=== PATIENT | male | born 1975 | race Caucasian/White ===

== ENCOUNTER 2020-02-04 20:56 | Emergency (ER) | payer OTHER ==
[2020-02-04] MEDS ORDERED: IBUPROFEN 600 MG TABLET (FP) PO ONE ×2 (21:09→21:14)
[2020-02-04 21:26] VITALS: BP 156/104; PULSE 103; TEMP 99; BMI 28.0
== END 2020-02-04 21:21 | disposition home or self-care (01) ==
LOC: EDSEX → FER 20:56
DX: S39.012A Strain of muscle, fascia and tendon of lower back, initial encounter (principal); S46.911A Strain of unspecified muscle, fascia and tendon at shoulder and upper arm level, right arm, initial encounter
CPT/HCPCS: 99283-25

== ENCOUNTER 2020-02-16 19:56 | Emergency (ER) | payer OTHER ==
[2020-02-16 20:30] VITALS: BP 148/97; PULSE 115; TEMP 98.9; BMI 28.0
[2020-02-16] MEDS ORDERED: DIPHTH,PERTUSS(ACELL),TET 0.5 ML DISP.SYRIN IM ONE ×2 (20:36→20:37)
[2020-02-16] MEDS ORDERED: IBUPROFEN 600 MG TABLET (FP) PO ONE ×2 (20:45→20:46)
== END 2020-02-16 20:56 | disposition home or self-care (01) ==
LOC: FER 19:56
PROC: 3E0234Z Introduction of Serum, Toxoid and Vaccine into Muscle, Percutaneous Approach (ICD-10-PCS; principal; 2020-02-16)
DX: S46.911A Strain of unspecified muscle, fascia and tendon at shoulder and upper arm level, right arm, initial encounter (principal); S39.012A Strain of muscle, fascia and tendon of lower back, initial encounter; S86.911A Strain of unspecified muscle(s) and tendon(s) at lower leg level, right leg, initial encounter
CPT/HCPCS: 90471; 90715; 99284-25

== ENCOUNTER 2020-04-23 22:46 | Emergency (ER) | payer OTHER ==
[2020-04-23 22:52] VITALS: BP 159/103; PULSE 112; TEMP 97.6; BMI 27.3
== END 2020-04-23 23:03 | disposition home or self-care (01) ==
LOC: FER 22:46
DX: S80.811A Abrasion, right lower leg, initial encounter (principal)
CPT/HCPCS: 99282-25